=== PATIENT | male | born 2000 | race Caucasian/White ===

== ENCOUNTER 2021-08-25 11:51 | Outpatient (REF) | payer OTHER, SELFPAY ==
--- NOTE | ~2021-08-25 | XR_ITS ---
EXAMINATION: XR FOOT, RIGHT CLINICAL INFORMATION: Other disturbance of skin sensation COMPARISON: None TECHNIQUE: AP, lateral, and oblique views of the right foot. FINDINGS: No fracture or dislocation is seen. There is mild pes planus of the foot. Bone alignment is otherwise normal. Joint spaces are normal. There may be soft tissue swelling adjacent to the medial IP joint of the great toe. Soft tissues are otherwise unremarkable. XR/XR foot RT min 3V IMPRESSION: Mild soft tissue swelling over the medial IP joint of the great toe.
== END 2021-08-25 11:52 | disposition home or self-care (01) ==
LOC: HO.HMGCX 11:51
PROVIDERS: PCP Internal Medicine; Visit Provider Physician Assistant Medical
DX: R20.8 Other disturbances of skin sensation (principal)
CPT/HCPCS: 73630

== ENCOUNTER 2023-09-05 14:02 | Outpatient (AMB) | payer OTHER, SELFPAY ==
--- NOTE | 2023-09-05 14:39 | AM.OFFWIN_ITS ---
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 Patient states he does occasionally get an erythematous rash on his hands but he believes it is more related to scrubbing/cleaning his hands frequently. He denies any fever/chills, shortness of breath, wheezing, abdominal pain, nausea/vomiting/diarrhea/constipation, confusion/disorientation, seizures, myalgias/arthralgias, severe fatigue, or headaches. [facility] Medical History Obesity (BMI 30-39.9) Family History Mother No problems noted. Father No problems noted. Brother No problems noted. Brother No problems noted. Sister No problems noted. Social History Alcohol intake: never Patient Tobacco Use Status: Never used Tobacco service: No Current occupational status: employed Review of Systems Const All systems reviewed & are unremarkable except as noted in HPI and below Reports no additional complaints Eyes Reports no additional complaints ENT Reports no additional complaints Card Reports no additional complaints Resp Reports no additional complaints GI Reports no additional complaints Reports no additional complaints Musc Reports no additional complaints Skin/Breast Reports system reviewed and no additional complaints, except as documented Neuro Reports no additional complaints Psych Reports no additional complaints Endo Reports no additional complaints Joe/Lymph Reports no additional complaints Aller/Immun Reports no additional complaints Physical Exam Vital Signs: Last Vital Signs Temp 99.0 F 09/05/23 14:41 Pulse 87 09/05/23 14:41 BP 108/70 09/05/23 14:41 Pulse Ox 98 09/05/23 14:41 Oxygen Delivery Method Room Air 09/05/23 14:41 Const Other: Vital signs reviewed. Constitutional: Non-toxic appearing. No acute distress. Well-developed and well-nourished. HEENT: Normocephalic and atraumatic. Skin: Warm and dry. He has some scaly/dry erythema to the dorsal aspect of his wrists; however, there is significant rash or chemical baez noted. Neck: Full and painless range of motion. No cervical lymphadenopathy. Cardio: Regular rate and rhythm. No murmurs, gallops, or rubs. No lower extremity edema. No JVD. Pulmonary: No respiratory distress. No accessory muscle usage. Clear to auscultation bilaterally without wheezing, crackles, or rhonchi. Gastrointestinal: Soft, nontender, and nondistended in all 4 quadrants. Musculoskeletal: Normal range of motion in joints throughout the body. No deformity or other signs of injury. Neuro: Alert and oriented x4. Cranial nerves 2-12 grossly intact. No focal deficits appreciated. Psych: Normal mood and affect. Assessment & Plan Assessment & Plan (1) Contact with and (suspected) exposure to lead: Code(s): Z77.011 - Contact with and (suspected) exposure to lead Plan: This is a 23-year-old male who presented to the walk-in clinic with his mother concerns for chronic lead and acid exposure. Patient does not have any signs of acute lead poisoning/toxicity and he has no evidence of chemical baez throughout his body. Patient's mother is extremely concerned about his chronic lead exposure. I recommended that the patient use preventative measures such as wearing gloves and wearing an N95 mask at work to reduce risk of exposure through his skin and through his respiratory tract. Patient's mother requested blood work so I will check a CBC and a CMP to evaluate for signs or kidney dysfunction. Patient and his mother state that all their questions have been answered at this time and they are extremely appreciative of the help provided at the walk-in clinic today. Orders: Orders Complete Blood Count Auto Diff Today Z77.098 - Contact with and (suspected) exposure to other hazardous, chiefly nonmedicinal, chemicals Comprehensive Met. Panel Today Z77.098 - Contact with and (suspected) exposure to other hazardous, chiefly nonmedicinal, chemicals Coding Level of Care Code Est Pt Level 3 (85844) Diagnoses Contact with and (suspected) exposure to lead Z77.011
[2023-09-05 14:41] VITALS: BP 108/70; PULSE 87; TEMP 37.2; O2SAT 98
== END 2023-09-05 15:24 | disposition home or self-care (01) ==
PROVIDERS: PCP Internal Medicine; Visit Provider Physician Assistant Medical
DX: Z77.011 Contact with and (suspected) exposure to lead (principal)
CPT/HCPCS: 99213

== ENCOUNTER 2023-09-05 15:12 | Outpatient (REF) | payer OTHER, SELFPAY ==
[2023-09-05 16:29] LABS: MANUAL DIFF FLAG NO
[2023-09-05 16:35] LABS: Basophils Percent Auto 0.4 % (0-2); Eosinophils Absolute Auto 0.2 X10*3/uL (0.0-0.4); Eosinophils Percent Auto 3.3 % (0-4); Hematocrit 47.1 % (42.0-52.0); Hemoglobin 15.7 g/dl (14.0-18.0); Imm Gran Abs Auto 0.01 X10*3/uL (0.00-0.03); Imm Gran Pct Auto 0.1 % (0.0-0.4); Lymphocytes Absolute Auto 1.8 X10*3/uL (1.2-4.9); Lymphocytes Percent Auto 26.8 % (20-40); Mean Corpuscular HGB Conc 33.3 g/dl (31.0-36.0); Mean Corpuscular Hemoglobin 28.8 pg (27.0-33.0); Mean Corpuscular Volume 86.3 fL (80.0-98.0); Mean Platelet Volume 10.7 fL (9.4-12.4); Monocytes Absolute Auto 0.5 X10*3/uL (0.1-1.2); Monocytes Percent Auto 7.4 % (2-11); Neutrophils Absolute Auto 4.3 x10*3/uL (2.0-8.3); Platelet Count 241 X10*3/uL (160-400); Red Blood Count 5.46 X10*6/uL (4.60-5.80); Red Cell Distribution Width 13.2 % (11.0-16.0); White Blood Count 6.9 X10*3/uL (4.8-10.8)
[2023-09-05 17:00] LABS: Alanine Aminotransferase 37 U/L (0-40); Albumin Level 4.4 g/dL (3.5-5.0); Alkaline Phosphatase 119 U/L (39-117); Anion Gap 11 (12-20); Aspartate Amino Transferase 14 U/L (5-37); Bilirubin Total 0.2 mg/dL (0.0-1.0); Blood Urea Nitrogen 11 mg/dL (9-16); Calcium 9.4 mg/dL (8.4-10.2); Carbon Dioxide 28 mmol/L (22-29); Chloride 109 mmol/L (96-108); Estimated Glomerular Filt Rate > 60; Glucose Random 74 mg/dL (60-115); Potassium 3.8 mmol/L (3.3-5.1); Sodium 144 mmol/L (135-145); Total Protein 7.4 g/dL (6.5-8.0)
== END 2023-09-05 15:13 | disposition home or self-care (01) ==
LOC: HO.HMGCLDS 15:12
PROVIDERS: PCP Internal Medicine; Visit Provider Physician Assistant Medical
DX: Z77.098 Contact with and (suspected) exposure to other hazardous, chiefly nonmedicinal, chemicals (principal)
CPT/HCPCS: 36415; 80053; 85025